=== PATIENT | male | born 1970 | race Caucasian/White ===

== ENCOUNTER 2019-11-04 15:12 | Emergency (ER) | payer BC ==
[2019-11-04] MEDS ORDERED: DIPH,PERTUS(ACELL)TETVAC-LF 0.5 ML VIAL IM ONE (15:27)
--- NOTE | 2019-11-04 15:36 | ED ---
General Adult HPI - General Chief complaint: Head Injury Stated complaint: Head injury, [facility] Time Seen by Provider: 11/04/19 15:23 Source: patient, RN notes reviewed Mode of arrival: ambulatory Limitations: no limitations - History of Present Illness Initial comments: 48-year-old male presents to the emergency department for a chief complaint of laceration. Patient states he was at work bending over when the backhoe bucket grazed his scalp. Patient states that it caused a laceration. However he denies any significant impact to his head. States it more grazed his scalp. Denies blood thinners. Denies headache. Denies loss of consciousness. Patient is not up-to-date on tetanus.Patient has no other complaints at this time including shortness of breath, chest pain, abdominal pain, nausea or vomiting, headache, or visual changes. - Related Data Allergies Allergy/AdvReac Type Severity Reaction Status Date / Time No Known Allergies Allergy Verified 11/04/19 15:21 Review of Systems ROS Statement: Those systems with pertinent positive or pertinent negative responses have been documented in the HPI. ROS Other: All systems not noted in ROS Statement are negative. Past Medical History Past Medical History: Hypertension History of Any Multi-Drug Resistant Organisms: None Reported Past Surgical History: No Surgical Hx Reported Past Psychological History: No Psychological Hx Reported Smoking Status: Never smoker Past Alcohol Use History: None Reported Past Drug Use History: None Reported General Exam Limitations: no limitations General appearance: alert, in no apparent distress Head exam: Present: normocephalic. Absent: atraumatic (Patient has a 4 cm laceration noted to the frontal scalp within the hair. Bleeding controlled at this time.) Eye exam: Present: normal appearance, PERRL, EOMI. Absent: scleral icterus, conjunctival injection, periorbital swelling ENT exam: Present: normal exam, mucous membranes moist Neck exam: Present: normal inspection, full ROM. Absent: tenderness, meningismus, lymphadenopathy Respiratory exam: Present: normal lung sounds bilaterally. Absent: respiratory distress, wheezes, rales, rhonchi, stridor Cardiovascular Exam: Present: regular rate, normal rhythm, normal heart sounds. Absent: systolic murmur, diastolic murmur, rubs, gallop, clicks Neurological exam: Present: alert, oriented X3, normal gait, other (GCS 15) Course Vital Signs 11/04/19 15:17 Temperature 98.7 F Pulse Rate 78 Respiratory 18 Rate Blood Pressure 155/78 O2 Sat by Pulse 97 Oximetry Procedures - Laceration Laceration #1 Consent Obtained: verbal consent Indication: laceration Site: scalp Size (cm): 4 Description: linear Depth: simple, single layer Pre-repair: wound explored, irrigated extensively (With saline pressure irrigation) Type of Sutures: other (patricia) Size of Sutures: other (4) Technique: simple, interrupted Patient Tolerated Procedure: well, no complications Medical Decision Making - Medical Decision Making No blunt force trauma to the head. Backhoe bucket grazed patient scalp causing a laceration. No loss of consciousness, no headache. Wound was irrigated and stapled with 4 patricia. Patient will follow up with primary care. Discussed return precautions for infection and head injury. Discussed returning for any other worsening symptoms. Disposition Clinical Impression: Laceration Disposition: HOME SELF-CARE Condition: Good Instructions (If sedation given, give patient instructions): Laceration (ED), Staple Care (ED) Additional Instructions: Please monitor for any signs of infection such as spreading or streaking redness, drainage, or fevers. Monitor for any signs of concussion such as headache, visual changes, nausea, confusion. If these occur return immediately to the emergency department. Otherwise return in 7-10 days for staple removal. Follow up with primary care in 1-2 days for a recheck. Is patient prescribed a controlled substance at d/c from ED?: No Referrals: Nonstaff,Physician [Primary Care Provider] - 1-2 days Time of Disposition: 15:35
[2019-11-05 10:17] VITALS: BP 155/78; PULSE 78; RESP 18; TEMP 98.7
== END 2019-11-04 16:14 | disposition home or self-care (01) ==
LOC: EC 15:12
DX: S01.01XA Laceration without foreign body of scalp, initial encounter (principal); Z23 Encounter for immunization; W26.8XXA Contact with other sharp object(s), not elsewhere classified, initial encounter; Y93.89 Activity, other specified; Y92.69 Other specified industrial and construction area as the place of occurrence of the external cause
CPT/HCPCS: 12002; 90471; 90715; 99283